=== PATIENT | female | born 1950 | race Caucasian/White ===

== ENCOUNTER 2024-12-31 14:10 | Outpatient (CLI) | payer MEDICARE, OTHER | END 2024-12-31 14:11 | disposition home or self-care (01) | LOC: CSHMAMMO 14:10 | PROVIDERS: ATTEND Obstetrics & Gynecology | DX: N63.11 Unspecified lump in the right breast, upper outer quadrant (principal); N60.01 Solitary cyst of right breast; R92.0 Mammographic microcalcification found on diagnostic imaging of breast | CPT/HCPCS: 76642; 77066; G0279 ==

== ENCOUNTER → 2025-01-04 | Day surgery (SDC) | payer MEDICARE, OTHER | LOC: CSHMAMMO 10:29 | PROVIDERS: ATTEND Obstetrics & Gynecology | PROC: 0HBT3ZX Excision of Right Breast, Percutaneous Approach, Diagnostic (ICD-10-PCS; principal; 2025-01-04) | DX: D24.1 Benign neoplasm of right breast (principal); N62 Hypertrophy of breast; R92.0 Mammographic microcalcification found on diagnostic imaging of breast | CPT/HCPCS: 19081; 19082; 76098; 77065; A4648; 88305 ==